=== PATIENT | female | born 1990 | race Caucasian/White ===

== ENCOUNTER 2022-01-16 14:03 | Emergency (ER) | payer OTHER ==
[2022-01-16 14:35] LABS: BASOPHIL 0.7 % (0-2); EOSINOPHIL 8.7 % (0-5); HCT 46.3 % (37.0-47.0); HGB 15.6 g/dl (12.5-16.0); LYMPHOCYTE 24.5 % (15-48); MCH 31.4 pg (25.0-31.0); MCHC 33.7 g/dL (32.0-36.0); MCV 93.2 fL (78.0-100.0); MONOCYTE 6.1 % (0-12); NEUTROPHIL 59.7 % (41-80); NRBC 0; PLT 442 K/uL (150-400); RBC 4.97 M/uL (4.20-5.40); RDW 12.7 % (11.5-14.0); WBC 12.7 K/uL (4.0-10.5)
[2022-01-16 14:39] LABS: INR 1.04 (0.9-1.2)
[2022-01-16 14:46] LABS: ALBUMIN 4.3 g/dL (3.4-5.0); BILIRUBIN - TOTAL 0.3 mg/dL (0.2-1.0); BUN/CREAT RATIO (CALC) 13.2 RATIO; CREATININE 0.91 mg/dL (0.51-0.95); GLOBULIN (CALCULATION) 3.9 g/dL; POTASSIUM 3.5 mmol/L (3.5-5.1); TOTAL PROTEIN 8.2 g/dL (6.4-8.2)
[2022-01-16 17:32] LABS: BILIRUBIN NEGATIVE (NEGATIVE); BLOOD NEGATIVE Ery/uL (NEGATIVE); CLARITY CLEAR (CLEAR); COLOR YELLOW (YELLOW); GLUCOSE (U) NORMAL (NORMAL); LEUKOCYTES NEGATIVE Leu/uL (NEGATIVE); NITRITE NEGATIVE (NEGATIVE); PROTEIN NEGATIVE (NEGATIVE); SPECIFIC GRAVITY 1.025 (1.001-1.030); UROBILINOGEN 0.2 mg/dL (0.2-1.0)
[2022-01-18 20:09] LABS: CHLAMYDIA TRACHOMATIS, NAA Positive (Negative); NEISSERIA GONORRHOEAE, NAA Negative (Negative)
== END 2022-01-16 17:59 | disposition home or self-care (01) ==
LOC: FER 14:03
PROVIDERS: Physician Assistant
DX: O26.891 Other specified pregnancy related conditions, first trimester (principal); R10.32 Left lower quadrant pain; O99.331 Smoking (tobacco) complicating pregnancy, first trimester; F17.210 Nicotine dependence, cigarettes, uncomplicated; Z3A.01 Less than 8 weeks gestation of pregnancy
CPT/HCPCS: 36415; 76801; 80053; 81003; 84702; 85025; 85610; 86850; 86900; 86901; 87210; 87491; 87591

== ENCOUNTER 2022-01-25 06:25 | Emergency (ER) | payer OTHER ==
[2022-01-25 07:53] LABS: BILIRUBIN NEGATIVE (NEGATIVE); BLOOD 3+ Ery/uL (NEGATIVE); CLARITY CLEAR (CLEAR); COLOR YELLOW (YELLOW); GLUCOSE (U) NORMAL (NORMAL); LEUKOCYTES NEGATIVE Leu/uL (NEGATIVE); NITRITE NEGATIVE (NEGATIVE); PROTEIN NEGATIVE (NEGATIVE); UROBILINOGEN 0.2 mg/dL (0.2-1.0)
[2022-01-25 08:21] LABS: URINARY WBC RARE
[2022-01-25 08:22] LABS: BACTERIA TRACE
== END 2022-01-25 08:55 | disposition left against medical advice (07) ==
LOC: FER 06:25
PROVIDERS: Emergency Medicine
DX: O20.9 Hemorrhage in early pregnancy, unspecified (principal); Z28.310 Unvaccinated for COVID-19
CPT/HCPCS: 81001; 99281

== ENCOUNTER 2022-04-23 12:42 | Emergency (ER) | payer OTHER ==
[2022-04-23 13:17] LABS: BASOPHIL 0.5 % (0-2); EOSINOPHIL 1.5 % (0-5); HCT 45.2 % (37.0-47.0); LYMPHOCYTE 13.5 % (15-48); MCH 31.1 pg (25.0-31.0); MCHC 33.2 g/dL (32.0-36.0); MCV 93.8 fL (78.0-100.0); MONOCYTE 5.4 % (0-12); MPV 10.3 fL (6.0-9.5); NEUTROPHIL 78.8 % (41-80); NRBC 0; PLT 343 K/uL (150-400); RBC 4.82 M/uL (4.20-5.40); RDW 12.3 % (11.5-14.0)
[2022-04-23 13:20] LABS: BILIRUBIN NEGATIVE (NEGATIVE); BLOOD NEGATIVE Ery/uL (NEGATIVE); CLARITY CLEAR (CLEAR); COLOR YELLOW (YELLOW); GLUCOSE (U) NORMAL (NORMAL); LEUKOCYTES NEGATIVE Leu/uL (NEGATIVE); NITRITE NEGATIVE (NEGATIVE); PROTEIN TRACE (LOW) mg/dL (NEGATIVE); SPECIFIC GRAVITY 1.015 (1.001-1.030); pH 8.5 (5.0-9.0)
[2022-04-23 13:30] LABS: INR 1.08 (0.9-1.2); PROTHROMBIN TIME 13.7 SECONDS (11.9-13.9); PTT 25.6 SECONDS (24.9-34.6)
[2022-04-23 13:34] LABS: ALBUMIN 4.1 g/dL (3.4-5.0); BILIRUBIN - TOTAL 0.3 mg/dL (0.2-1.0); BUN/CREAT RATIO (CALC) 18.5 RATIO; CREATININE 0.81 mg/dL (0.51-0.95); GLOBULIN (CALCULATION) 3.1 g/dL; POTASSIUM 4.1 mmol/L (3.5-5.1); TOTAL PROTEIN 7.2 g/dL (6.4-8.2)
[2022-04-23 14:02] LABS: CORONAVIRUS 2019 SARS-COV-2 NEGATIVE (NEGATIVE); INFLUENZA A NAA NEGATIVE (NEGATIVE)
[2022-04-23] MEDS ORDERED: SENNA PLUS 8.61 EACH PO (15:23)
[2022-04-23] MEDS ORDERED: MIRALAX 238GM238 GM PO (15:23)
== END 2022-04-23 15:50 | disposition home or self-care (01) ==
LOC: FER 12:42
PROVIDERS: Internal Medicine
DX: R10.31 Right lower quadrant pain (principal); K59.00 Constipation, unspecified; F17.210 Nicotine dependence, cigarettes, uncomplicated; Z20.822 Contact with and (suspected) exposure to COVID-19; Z28.310 Unvaccinated for COVID-19
CPT/HCPCS: 36415; 80053; 81003; 83605; 83690; 84145; 85025; 85610; 85730; 96372; J1885; J2405; U0002